=== PATIENT | female | born 1975 | race Caucasian/White ===

== ENCOUNTER 2018-05-17 20:40 | Emergency (ER) | payer SELFPAY ==
[2018-05-17 20:50] VITALS: BP 145/81; PULSE 76; TEMP 97.9; BMI 30.2
--- NOTE | 2018-05-17 20:54 | PDOC ---
History of Present Illness - General History Source: Patient Exam Limitations: No Limitations - History of Present Illness Initial Comments: Assessment and plan: This is a 42-year-old female who cut her right arm she fell. Patient's tetanus status was approximately 19 years ago Patient's tetanus was updated and her laceration was repaired with 4 blanca. Procedure note: Laceration repair Forearm laceration was anesthetized with 1% lidocaine Laceration was thoroughly irrigated using a syringe and Zerowet to dislodge any debris or contamination.. Laceration was closed with a total of 4 blanca Patient tolerated well patient discharged home 05/17/18 21:34 <Laura Prabhakar I - Last Filed: 05/17/18 21:34> - General History Source: Patient Exam Limitations: No Limitations - History of Present Illness Initial Comments: 05/17/18 21:22 The patient is a 42 year old female with no significant past medical history of who presents to the emergency department with a right forearm laceration earlier today. Patient notes she is from [place] and is visiting for work. 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 The patient states she got dizzy a couple times and felt nauseous at onset of her fall. The patient reports her dizziness resolved, however, when she ate, her symptoms resurfaced again. Patient is now comfortable and denies those symptoms. Patient notes her last tetanus shot was 20 years ago. The patient denies chest pain, shortness of breath, headache or dizziness. The patient denies fever, chills, nausea, vomit, diarrhea or constipation. The patient denies dysuria, frequency, or urgency. PAST MEDICAL HISTORY: no significant history PAST SURGICAL HISTORY: no significant history FAMILY HISTORY: no pertinent history SOCIAL HISTORY: Pt lives with family and is employed. occasional drinker MEDICATIONS: reviewed ALLERGIES: As per nursing notes <Dayton Lynch - Last Filed: 05/17/18 21:39> - General Chief Complaint: Laceration Stated Complaint: RA LACERATION Time Seen by Provider: 05/17/18 20:52 Past History - Past Medical History COPD: No - Suicide/Smoking/Psychosocial Hx Smoking History: Never smoked <Laura Prabhakar I - Last Filed: 05/17/18 21:34> <Dayton Lynch - Last Filed: 05/17/18 21:39> - Past Medical History Allergies/Adverse Reactions: Allergies Allergy/AdvReac Type Severity Reaction Status Date / Time No Known Allergies Allergy Unverified 05/17/18 20:42 Home Medications: Ambulatory Orders NK [No Known Home Medication] 05/17/18 Review of Systems - Review of Systems Able to Perform ROS?: Yes Comments:: 05/17/18 21:23 General: No fevers or chills, no weakness, no weight loss HEENT: No change in vision. No sore throat,. No ear pain CardioVascular: No chest pain or shortness of breath Respiratory:No cough, or wheezing. Gastrointestinal: no nausea, vomiting, diarrhea or constipation, No rectal bleeding Genitourinary:no hematuria. No dysuria,or frequency Musculoskeletal: No joint or muscle pain or swelling Neurologic: No headache, vertigo, dizziness or loss of consciousness Psychiatric: nor depression Skin: (+) right forearm laceration. Endocrine: no increased thirst or abnormal weight change Allergic: no skin or latex allergy All other systems reviewed and normal <Dayton Lynch - Last Filed: 05/17/18 21:39> *Physical Exam - Vital Signs Last Vital Signs Temp Pulse Resp BP Pulse Ox 97.9 F 76 16 145/81 100 05/17/18 20:46 05/17/18 20:46 05/17/18 20:46 05/17/18 20:46 05/17/18 20:46 <Laura Prabhakar I - Last Filed: 05/17/18 21:34> - Vital Signs Last Vital Signs Temp Pulse Resp BP Pulse Ox 97.9 F 76 16 145/81 100 05/17/18 20:46 05/17/18 20:46 05/17/18 20:46 05/17/18 20:46 05/17/18 20:46 - Physical Exam Comments: 05/17/18 21:24 GENERAL: The patient is awake, alert, and fully oriented, in no acute distress. HEAD: (+) small contusion to the middle of forehead skin intact. Normal with no signs of trauma. EYES: Pupils equal, round and reactive to light, extraocular movements intact, sclera anicteric, conjunctiva clear. EXTREMITIES:(+) R forearm approximately 3 cm laceration.(+) minimal bleeding neurovascular, distal intact. Normal range of motion, no edema. NEUROLOGICAL: Normal speech, normal gait. PSYCH: Normal mood, normal affect. SKIN: Warm, Dry, normal turgor. <Dayton Lynch - Last Filed: 05/17/18 21:39> Moderate Sedation - Procedure Monitoring Vital Signs: Procedure Monitoring Vital Signs Temperature 97.9 F 05/17/18 20:46 Pulse Rate 76 05/17/18 20:46 Respiratory Rate 16 05/17/18 20:46 Blood Pressure 145/81 05/17/18 20:46 O2 Sat by Pulse Oximetry (%) 100 05/17/18 20:46 <Laura Prabhakar I - Last Filed: 05/17/18 21:34> - Procedure Monitoring Vital Signs: Procedure Monitoring Vital Signs Temperature 97.9 F 05/17/18 20:46 Pulse Rate 76 05/17/18 20:46 Respiratory Rate 16 05/17/18 20:46 Blood Pressure 145/81 05/17/18 20:46 O2 Sat by Pulse Oximetry (%) 100 05/17/18 20:46 <Dayton Lynch - Last Filed: 05/17/18 21:39> *DC/Admit/Observation/Transfer - Discharge Dispostion Decision to Admit order: No <Laura Prabhakar I - Last Filed: 05/17/18 21:34> - Attestations Scribe Attestion: 05/17/18 21:24 Documentation prepared by Dayton Lynch, acting as emergency medicine medical director for Laura Prabhakar MD <Dayton Lynch - Last Filed: 05/17/18 21:39> Diagnosis at time of Disposition: Arm laceration Qualifiers: Encounter type: initial encounter Laterality: right Qualified Code(s): S41.111A - Laceration without foreign body of right upper arm, initial encounter - Discharge Dispostion Disposition: HOME Condition at time of disposition: Stable - Patient Instructions Printed Discharge Instructions: DI for Laceration Repair Additional Instructions: Have the blanca removed in one week. Use a staple remover I gave you to remove them. Return to the emergency department immediately with ANY new, persistent or worsening symptoms. Continue any medications as previously prescribed by your physician. You should follow up with your primary doctor as soon as possible regarding today's emergency department visit. . Please make sure your doctor reviews the results of your emergency evaluation. Thank you for coming to the Emergency Department today for your care. It was a pleasure to see you today. Please note that your evaluation is INCOMPLETE until you follow-up with your doctor.
[2018-05-17] MEDS ORDERED: DIPHTH,PERTUSS(ACELL),TET 0.5 ML DISP.SYRIN IM ONE ×2 (21:27→21:28)
== END 2018-05-17 21:40 | disposition home or self-care (01) ==
LOC: FER 20:40
PROC: 3E0234Z Introduction of Serum, Toxoid and Vaccine into Muscle, Percutaneous Approach (ICD-10-PCS; principal; 2018-05-17)
PROC: 0HQFXZZ Repair Right Hand Skin, External Approach (ICD-10-PCS; 2018-05-17)
DX: S41.111A Laceration without foreign body of right upper arm, initial encounter (principal); W45.8XXA Other foreign body or object entering through skin, initial encounter; Y93.89 Activity, other specified; Y92.89 Other specified places as the place of occurrence of the external cause
CPT/HCPCS: 90715; 99281-25